=== PATIENT | male | born 1965 | race Caucasian/White ===

== ENCOUNTER 2018-04-02 18:28 | Emergency (ER) | payer BC, OTHER ==
[~2018-04-02] VITALS: Ht 177.8 cm; Wt 81.8 kg
[2018-04-02 18:28] VITALS: BP 136/86
[2018-04-02] MEDS ORDERED: PROAAER10 (18:35)
[2018-04-02] MEDS ORDERED: MELO15TA28 (18:35)
[2018-04-02] MEDS ORDERED: MONT10TA2 (18:35)
[2018-04-02] MEDS ORDERED: CYCL10TA PO (19:26)
[2018-04-02] MEDS ORDERED: CYCLOBENZAPRINE 10 MG TAB PO ONE (19:30)
== END 2018-04-02 19:45 | disposition home or self-care (01) ==
LOC: M ED 18:28
DX: S29.012A Strain of muscle and tendon of back wall of thorax, initial encounter (principal)

== ENCOUNTER 2018-10-29 14:37 | Emergency (ER) | payer OTHER ==
[~2018-10-29] VITALS: Ht 177.8 cm; Wt 81.8 kg
[~2018-10-29 14:37] MED LIST: CYCL10TA PO; MELO15TA28; MONT10TA2; PROAAER10
[2018-10-29] MEDS ORDERED: vitamin d (14:44)
[2018-10-29] MEDS ORDERED: ALL10TAB29 (14:44)
[2018-10-29] MEDS ORDERED: ADACEL/BOOSTRIX VACCINE (DIPHTH/PERTUSS/ACELL/TETANUS)0.5ML SYR (90715) IM ONE (16:00)
[2018-10-29] MEDS ORDERED: AUGM875T28 PO (16:07)
[2018-10-29 16:32] VITALS: BP 130/87
== END 2018-10-29 16:31 | disposition home or self-care (01) ==
LOC: M ED 14:37
DX: S01.80XA Unspecified open wound of other part of head, initial encounter (principal); S50.311A Abrasion of right elbow, initial encounter; S80.211A Abrasion, right knee, initial encounter; R51 Headache; R11.0 Nausea; W01.198A Fall on same level from slipping, tripping and stumbling with subsequent striking against other object, initial encounter; Y92.480 Sidewalk as the place of occurrence of the external cause; Y93.01 Activity, walking, marching and hiking; Y99.0 Civilian activity done for income or pay; J45.909 Unspecified asthma, uncomplicated

== ENCOUNTER → 2023-05-01 | Outpatient (CLI) | payer OTHER ==
[~2023-05-01] MED LIST changes: +AUGM875T28 PO; +CETI-24; +CYCL-707 PO; -CYCL10TA PO; -MONT10TA2; +MONT10TA97; +vitamin d
== END ==
LOC: M SLEEP 20:00
PROVIDERS: ATTEND Nurse Practitioner Family
DX: G47.33 Obstructive sleep apnea (adult) (pediatric) (principal)